=== PATIENT | male | born 2000 | race Caucasian/White ===

== ENCOUNTER 2023-11-08 14:58 | Emergency (ER) | payer SELFPAY ==
--- NOTE | 2023-11-08 15:14 | EDPHYS ---
Physician Documentation [facility] Name: Asad Jeong Age: 23 yrs Sex: Male : 2000 Arrival Date: 11/08/2023 Time: 14:58 Bed Waiting Private MD: ED Physician Noé Jordan HPI: 11/07 15:11 This 23 yrs old Male presents to ER via Unassigned with complaints of Ear Pain. rn 15:11 The patient presents with a fullness, pain. The complaints affect the right ear. Onset: rn The symptoms/episode began/occurred 2 week(s) ago. Modifying factors: The symptoms are alleviated by nothing, the symptoms are aggravated by nothing. Severity of symptoms: At their worst the symptoms were moderate in the emergency department the symptoms are unchanged. The patient has experienced similar episodes in the past. The patient has not recently seen a physician. Patient reports right ear pain and fullness with muffled hearing for 2 weeks. States he is prone to ear infections. Denies trauma or injury. No bleeding. No drainage. Tried ear irrigation kit at home and did not retrieve any earwax and did not improve his symptoms.. Historical: - Allergies: 15:38 No Known Allergies; tl4 - Home Meds: 15:38 None [Active]; tl4 - PMHx: 15:38 None; tl4 - PSHx: 15:38 Myringotomy and insertion of tympanic ventilation tube; tl4 - Immunization history:: Adult Immunizations unknown. - Infectious Disease History:: Denies. - Family history:: not pertinent. - Hospitalizations: : No recent hospitalization is reported. - Social history:: Smoking status: Reported history of juuling and/or vaping. ROS: 15:11 Constitutional: Negative for fever, chills, and weight loss, ENT: Positive for right rn ear fullness and muffled hearing with pain Neck: Negative for injury, pain, and swelling, Neuro: Negative for headache, weakness, numbness, tingling, and seizure, Exam: 15:11 Constitutional: This is a well developed, well nourished patient who is awake, alert, rn and in no acute distress. ENT: Right TM with erythema and fluid behind ear. No foreign body in ear canal. No evidence of otitis externa Vital Signs: 15:32 BP 137 / 82; Pulse 83; Resp 16; Temp 97.4(TE); Pulse Ox 99% on R/A; Weight 118.39 kg; tl4 Height 5 ft. 10 in. ; Pain 8/10; 15:32 Body Mass Index 37.45 (118.39 kg, 177.8 cm) tl4 15:32 Pain Scale: Adult tl4 MDM: 15:03 Patient medically screened. rn 15:11 Differential diagnosis: otitis media, acute otalgia, cerumen impaction, serotympanum. rn Data reviewed: vital signs, nurses notes, and as a result, I will discharge patient. Counseling: I had a detailed discussion with the patient and/or guardian regarding the historical points, exam findings, and any diagnostic results supporting the discharge/admit diagnosis, the need for outpatient follow up, to return to the emergency department if symptoms worsen or persist or if there are any questions or concerns that arise at home. Special discussion: I discussed with the patient/guardian in detail that at this point there is no indication for admission to the hospital. It is understood, however, that if the symptoms persist or worsen the patient needs to return immediately for re-evaluation. Administered Medications: No medications were administered Disposition Summary: 11/08/23 15:13 Discharge Ordered Notes: Location: Home rn Problem: new rn Symptoms: are unchanged rn Condition: Stable rn Diagnosis - Acute serous otitis media, right ear rn Followup: rn - With: Private Physician - When: As needed - Reason: Recheck today's complaints, Re-evaluation by your physician Discharge Instructions: - Discharge Summary Sheet rn - Otitis Media, Adult rn Forms: - Medication Reconciliation Form rn - Antibiotic pattern hand - Prescription Opioid Use rn - Patient Portal Instructions rn - Leadership Thank You Letter rn Prescriptions: - Augmentin 875-125 mg Oral Tablet - take 1 tablet ORAL route every 12 hours for 10 days; 20 tablet; Refills: 0, rn Product Selection Permitted Signatures: Noé Jordan MD MD rn Logdahl, MOHINDER Holbrook RN tl4 Corrections: (The following items were deleted from the chart) 15:38 15:38 PSHx: None; tl4 tl4
--- NOTE | 2023-11-08 15:39 | ER ---
Nurse's Notes [facility] Name: Asad Jeong Age: 23 yrs Sex: Male : 2000 Arrival Date: 11/08/2023 Time: 14:58 Bed Waiting Private MD: Diagnosis: Acute serous otitis media, right ear Presentation: 11/07 15:32 Chief complaint: Patient states: Pt c/o right ear pain x 3 weeks. No fever/chills, tl4 drainage. Coronavirus screen: At this time, the client does not indicate any symptoms associated with coronavirus-19. Ebola Screen: No symptoms or risks identified at this time. Initial Sepsis Screen: Does the patient meet any 2 criteria? No. Patient's initial sepsis screen is negative. Does the patient have a suspected source of infection? No. Patient's initial sepsis screen is negative. Risk Assessment: Do you want to hurt yourself or someone else? Patient reports no desire to harm self or others. Onset of symptoms was October 18, 2023. 15:32 Method Of Arrival: Ambulatory tl4 15:32 Acuity: [place] 4 tl4 Triage Assessment: 15:33 General: Appears in no apparent distress. Behavior is calm, cooperative. Pain: tl4 Complains of pain in right ear. EENT: Reports pain in right ear. Neuro: Level of Consciousness is awake, alert, obeys commands, Oriented to person, place, time, situation, Moves all extremities. Full function Gait is steady, Speech is normal. Cardiovascular: Capillary refill < 3 seconds Patient's skin is warm and dry. Respiratory: Airway is patent Respiratory effort is even, unlabored, Respiratory pattern is regular, symmetrical. GI: No signs and/or symptoms were reported involving the gastrointestinal system. : No signs and/or symptoms were reported regarding the genitourinary system. Derm: No signs and/or symptoms reported regarding the dermatologic system. Musculoskeletal: No signs and/or symptoms reported regarding the musculoskeletal system. Historical: - Allergies: 15:38 No Known Allergies; tl4 - Home Meds: 15:38 None [Active]; tl4 - PMHx: 15:38 None; tl4 - PSHx: 15:38 Myringotomy and insertion of tympanic ventilation tube; tl4 - Immunization history:: Adult Immunizations unknown. - Infectious Disease History:: Denies. - Family history:: not pertinent. - Hospitalizations: : No recent hospitalization is reported. - Social history:: Smoking status: Reported history of juuling and/or vaping. Screenin:35 [facility] ED Fall Risk Assessment (Adult) History of falling in the last 3 months, tl4 including since admission No falls in past 3 months (0 pts) Confusion or Disorientation No (0 pts) Intoxicated or Sedated No (0 pts) Impaired Gait No (0 pts) Mobility Assist Device Used No (0 pt) Altered Elimination No (0 pt) Score/Fall Risk Level 0 - 2 = Low Risk Oriented to surroundings, Maintained a safe environment, Educated pt \T\ family on fall prevention, incl call for assistance when getting out of bed, Assessed \T\ reinforced patient's understanding of fall precautions. Abuse screen: Denies threats or abuse. Denies injuries from another. Nutritional screening: No deficits noted. Tuberculosis screening: No symptoms or risk factors identified. Assessment: 15:35 Reassessment: Patient appears in no apparent distress at this time. tl4 Vital Signs: 15:32 BP 137 / 82; Pulse 83; Resp 16; Temp 97.4(TE); Pulse Ox 99% on R/A; Weight 118.39 kg; tl4 Height 5 ft. 10 in. ; Pain 8/10; 15:32 Body Mass Index 37.45 (118.39 kg, 177.8 cm) tl4 15:32 Pain Scale: Adult tl4 ED Course: 15:01 Patient arrived in ED. ra3 15:03 Noé Jordan MD is Attending Physician. rn 15:33 Triage completed. tl4 15:35 Arm band placed on right wrist. tl4 15:35 Patient has correct armband on for positive identification. Provided Education on: ed tl4 process. 15:35 No provider procedures requiring assistance completed. Patient did not have IV access tl4 during this emergency room visit. Administered Medications: No medications were administered Medication: 15:35 VIS not applicable for this client. tl4 Outcome: 15:13 Discharge ordered by . rn 15:36 Discharged to home ambulatory, tl4 15:36 Condition: stable 15:36 Discharge instructions given to patient, Instructed on discharge instructions, follow up and referral plans. medication usage, Demonstrated understanding of instructions, follow-up care, medications, Prescriptions given X 1, 15:39 Patient left the ED. tl4 Signatures: Noé Jordan MD MD rn LogdaYusef jolly RN RN tl4 Edwige Delcid ra3 Corrections: (The following items were deleted from the chart) 15:38 15:38 PSHx: None; tl4 tl4
[2023-11-08 16:18] VITALS: BP 137/82; TEMP 97.4; O2SAT 99
== END 2023-11-08 15:39 | disposition home or self-care (01) ==
LOC: ER 14:58
DX: H65.01 Acute serous otitis media, right ear (principal)
CPT/HCPCS: 99283